=== PATIENT | male | born 1950 ===

== ENCOUNTER 2017-10-06 10:36 | Emergency (ER) | payer OTHER, BC ==
[2017-10-06 10:50] VITALS: BMI 30.3
[2017-10-06 10:51] VITALS: BP 121/76; PULSE 73; RESP 18; TEMP 98.1; O2SAT 99
--- NOTE | 2017-10-06 11:01 | ED PDOC ---
Arrival/HPI - General Historian: Patient - General Chief Complaint: Suture/Staple Removal Time Seen by Provider: 10/06/17 10:38 - History of Present Illness Narrative History of Present Illness (Text): 10/06/17 10:56 66-year-old male presents today for staple removal. Patient states that on September 25 he slipped on the ice fell backwards hitting his head. Patient denies headache dizziness or weakness. Denies fevers or chills. Denies neck or back pain. Patient states he has 2 colten in the back of the head need removing. ( Letty Irving) Past Medical History - Provider Review Nursing Documentation Reviewed: Yes - Travel History Have you recently traveled outside [place] w/in the past 3 mons?: No - Tetanus Immunization Tetanus Immunization: Up to Date - Cardiac Hx Hypertension: Yes - Pulmonary Hx Respiratory Disorders: No - Neurological Hx Neurological Disorder: No - HEENT Hx HEENT Disorder: No - Renal Hx Renal Disorder: No - Endocrine/Metabolic Hx Endocrine Disorders: No - Hematological/Oncological Hx Blood Disorders: No - Integumentary Hx Dermatological Disorder: No - Musculoskeletal/Rheumatological Hx Musculoskeletal Disorders: No - Gastrointestinal Hx Gastrointestinal Disorders: No - Genitourinary/Gynecological Hx Genitourinary Disorders: No - Psychiatric Hx Substance Use: No Family/Social History - Physician Review Nursing Documentation Reviewed: Yes Family/Social History: Unknown Family HX Smoking Status: Never Smoked Hx Alcohol Use: Yes Hx Substance Use: No Allergies/Home Meds Allergies/Adverse Reactions: Allergies apple Allergy (Verified 09/25/17 06:57) RASH carlie Allergy (Verified 09/25/17 06:57) RASH Penicillins Allergy (Verified 09/25/17 06:54) RASH nuts Allergy (Uncoded 09/25/17 06:58) RASH Home Medications: Home Meds Medication Instructions Recorded Confirmed Amlodipine Besylate/Benazepril 1 cap PO DAILY 09/25/17 09/25/17 [Lotrel 5-10 mg Capsule] metFORMIN [glucOPHAGE] 500 mg PO DAILY 09/25/17 09/25/17 Review of Systems - Review of Systems Constitutional: absent: Fatigue, Fevers Eyes: absent: Vision Changes, Eye Pain Respiratory: absent: SOB, Cough Cardiovascular: absent: Chest Pain, Palpitations Gastrointestinal: absent: Abdominal Pain, Nausea, Vomiting Genitourinary Male: absent: Dysuria Musculoskeletal: absent: Arthralgias Skin: Laceration Neurological: absent: Headache, Dizziness Psychiatric: absent: Anxiety, Depression Physical Exam Vital Signs Reviewed: Yes Temperature: Afebrile Blood Pressure: Normal Pulse: Regular Respiratory Rate: Normal Appearance: Positive for: Well-Appearing, Non-Toxic, Comfortable Pain Distress: None Mental Status: Positive for: Alert and Oriented X 3 - Systems Exam Head: Present: Laceration (healing laceration to posterior scalp with [address]; no erythema; no edema, no step offs or crepitus) Mouth: Present: Moist Mucous Membranes Neck: Present: Normal Range of Motion Respiratory/Chest: Present: Clear to Auscultation Cardiovascular: Present: Regular Rate and Rhythm Neurological: Present: GCS=15 Skin: Present: Warm, Dry, Normal Color Psychiatric: Present: Alert, Oriented x 3 Vital Signs Temp Pulse Resp BP Pulse Ox 10/06/17 10:36 98.1 F 73 18 121/76 99 Medical Decision Making ED Course and Treatment: 10/06/17 11:02 Patient is nontoxic well-appearing in no distress. Vital signs are stable. staple removal: 2 colten removed Wound healing well without signs of infection I advised the patient to keep the wound clean and dry apply bacitracin twice daily and return if symptoms worsen persist or if new symptoms develop Patient verbalizes understanding of discharge instructions and need for immediate followup. all aspects of this case were discussed the attending of record. Impression: staple removal. Keep the wound clean and dry Apply bacitracin twice daily Follow up with primary care physician within the next 2 days Return immediately if symptoms worsen persist or if new symptoms develop (Letty Irving) Disposition/Present on Arrival - Present on Arrival Any Indicators Present on Arrival: No History of DVT/PE: No History of Uncontrolled Diabetes: No Urinary Catheter: No History of Decub. Ulcer: No History Surgical Site Infection Following: None - Disposition Have Diagnosis and Disposition been Completed?: Yes Disposition Time: 10:54 Patient Plan: Discharge - Disposition Diagnosis: Removal of colten Disposition: HOME/ ROUTINE Condition: GOOD Discharge Instructions (ExitCare): Laceration (ED) Additional Instructions: Keep wound clean and dry Follow-up primary care physician within the next 2 days Return if symptoms worsen persist or if new concerning symptoms develop Referrals: [facility] at [facility] [place] [Outside] - Follow up with primary Magaly Dover MD [Staff Provider] - Follow up with primary Forms: [employer] (Burmese), WORK NOTE
== END 2017-10-06 11:10 | disposition home or self-care (01) ==
LOC: ED 10:36
DX: Z48.02 Encounter for removal of sutures (principal)